=== PATIENT | male | born 2000 | race Caucasian/White ===

== ENCOUNTER 2022-06-17 12:11 | Outpatient (CLI) | payer OTHER, MEDICAID | END 2022-06-17 12:12 | disposition short-term general hospital (02) | LOC: EMS 12:11 | DX: S81.802A Unspecified open wound, left lower leg, initial encounter (principal); S60.512A Abrasion of left hand, initial encounter; S60.511A Abrasion of right hand, initial encounter; S50.312A Abrasion of left elbow, initial encounter; S80.212A Abrasion, left knee, initial encounter; S80.211A Abrasion, right knee, initial encounter; V28.4XXA Motorcycle driver injured in noncollision transport accident in traffic accident, initial encounter; Y92.414 Local residential or business street as the place of occurrence of the external cause | CPT/HCPCS: A0425; A0429 ==